=== PATIENT | male | born 1985 | race Caucasian/White ===

== ENCOUNTER 2020-10-15 17:19 | Emergency (ER) | payer SELFPAY ==
[~2020-10-15] VITALS: Ht 180.3 cm; Wt 63.5 kg
[2020-10-15 17:20] VITALS: BP_SYST 79
--- NOTE | 2020-10-15 17:20 | NUR ---
BROUGHT IN BY [facility], PLACED IN BED #5 AND TRIAGED. REPORT GIVEN TO DAGOBERTO
--- NOTE | 2020-10-15 17:24 | NUR ---
PT WAS FOUND IN HALLWAY OF [facility] ALTERED, ACCORDING TO MEDICS, PT IS NOT A RESIDENT THERE. PT WAS FOUND TO HAVE 2 BOTTLES OF PILLS IN POCKET. GRACE AND VAISHALI WRITTEN TO A REBEKAH VÁZQUEZ. ONLY 2 TABS OF COGENTIN MISSING. IN GRACE BOTTLE, LARGE BUD OF MARIJUANA NOTED. DR MCCORMICK SHOWN BOTTLES
--- NOTE | 2020-10-15 17:35 | NUR ---
DR. MCCORMICK AT BEDSIDE TO EVALUATE PT STATUS
--- NOTE | 2020-10-15 18:01 | NUR ---
BLOOD OBTAINED, RESPONDS TO PAIN
[2020-10-15] MEDS: NACL 0.9% 1,000 ML IV ONE ×2 (18:25→23:17)
[2020-10-15 18:57] LABS: CALCIUM 8.6 mg/dL (8.4-11.0); CREATININE 0.68 mg/dL (0.55-1.30); POTASSIUM 3.5 mmol/L (3.5-5.1)
[2020-10-15 19:02] LABS: BASOPHILS # (AUTO) 0.1 K/uL (0.0-0.2); BASOPHILS % (AUTO) 0.8 % (0.0-2.0); EOSINOPHILS # (AUTO) 0.3 K/uL (0.0-0.4); EOSINOPHILS % (AUTO) 4.9 % (0.0-4.0); HEMATOCRIT 40.6 % (36-54); LYMPHOCYTES # (AUTO) 2.6 K/uL (1.0-5.5); LYMPHOCYTES % (AUTO) 40.4 % (20.5-51.5); MEAN CORPUSCULAR HEMOGLOBIN 27 pg (27-31); MEAN CORPUSCULAR HGB CONC 32 % (32-36); MEAN CORPUSCULAR VOLUME 83 fL (79.0-98.0); MONOCYTES # (AUTO) 0.4 K/uL (0.0-1.0); MONOCYTES % (AUTO) 5.9 % (1.7-9.3); NEUTROPHILS # (AUTO) 3.1 K/uL (1.8-7.7); PLATELET COUNT (AUTO) 387 K/uL (130-430); RED BLOOD CELL COUNT(AUTO) 4.89 MIL/uL (4.2-6.2); RED CELL DISTRIBUTION WIDTH 14.8 % (9.0-15.0); WHITE BLOOD COUNT (AUTO) 6.4 K/uL (4.8-10.8)
[2020-10-15 19:06] LABS: ALBUMIN 3.3 g/dL (3.4-4.8); TOTAL BILIRUBIN 0.2 mg/dL (0.0-1.0)
--- NOTE | 2020-10-15 19:31 | NUR ---
REPORT TAKEN AT BEDSIDE FORM ED [facility]. PT RESTING QUIETLY IN BED DENIES PAIN DENIES SOB DENIES CP ED RN MICK TO ASSUME CARE OF PT.
[2020-10-15 20:21] LABS: BILIRUBIN,URINE NEGATIVE (NEGATIVE); BLOOD, URINE NEGATIVE (NEGATIVE); CLARITY/URINE CLEAR (CLEAR); GLUCOSE,URINE NEGATIVE (NEGATIVE); KETONES,URINE NEGATIVE (NEGATIVE); LEUKOCYTE ESTERASE ,URINE NEGATIVE (NEGATIVE); NITRITE, URINE NEGATIVE (NEGATIVE); PROTEIN URINE NEGATIVE (NEGATIVE); UROBILINOGEN,URINE 0.2 (0.2-1.0)
[2020-10-15 20:50] LABS: COLOR,URINE STRAW (YELLOW)
--- NOTE | 2020-10-15 21:00 | NUR ---
PT RESTING QUIETLY IN ED BED WILL CONITNUE TO MONITOR
--- NOTE | 2020-10-16 00:45 | NUR ---
PT AWAKE, ALERT, AND ORIENTED x3 PT ABLE TO RECALL THE EVENTS OF THE DAY AND ABLE TO PROVIDE HIS FATHERS PHONE NUMBER TO CALL FOR A RIDE
--- NOTE | 2020-10-16 01:05 | NUR ---
PT AMBULATES TO THE RESTROOM WITHOUT ASSISTANCE AND AMBULATE BACK TO THE ED BED WITHOUT ASSISTANCE
--- NOTE | 2020-10-16 02:38 | NUR ---
PT RESTING QUIETLY IN BED AWAITING LIANG STEWART CALLED PT FATHER
--- NOTE | 2020-10-16 03:02 | NUR ---
PT BEDSIDE REPORT GIVEN TO SHEAR GRINDER OPERATORAVA GROVES WHO WILL ASSUME CARE
[2020-10-16 08:30] VITALS: BP_SYST 126
--- NOTE | 2020-10-16 08:34 | NUR ---
Patient given written and verbal discharge instructions and verbalizes understanding. ER MD discussed with patient the results and treatment provided. Patient in stable condition. ID arm band removed. IV catheter removed intact and dressing applied, no active bleeding. Rx of NONE given. Patient educated on pain management and to follow up with PMD. Pain Scale 0/10. Opportunity for questions provided and answered. Medication side effect fact sheet provided.
== END 2020-10-16 08:30 | disposition home or self-care (01) ==
LOC: SED 17:19
DX: F10.129 Alcohol abuse with intoxication, unspecified (principal)
CPT/HCPCS: 36415; 80053; 81003; 84484; 85025; 96360; 99285; G0482; J7030